=== PATIENT | male | born 1960 | race Caucasian/White ===

== ENCOUNTER 2022-10-15 10:08 | Outpatient (CLI) | payer OTHER, SELFPAY ==
--- NOTE | ~2022-10-15 | US_ITS ---
EXAMINATION: US carotid duplex BI DATE: 10/15/2022 10:35 INDICATION: Abnormal diagnostic heart images TECHNIQUE: Grayscale, color Doppler, and pulsed Doppler images of the cervical carotid arteries were obtained. The degree of vessel stenosis is placed in one of the following categories: normal, <50%, 5 0-69%, >=70% but less than near-occlusion, near-occlusion, or total occlusion. Note that percent sten osis relative to normal distal artery lumen diameter is indirectly measured from velocity measurement s as described by Karthik, et al. Radiology 2003; 229:340-346. Notes: Normal: Peak systolic velocity <125 centimeters/sec and no plaque <50%. Peak systolic velocity <125 ( EDV <40; ICA/CCA PSV ratio <2.0; used these factors only a tandem lesions or low cardiac output or co ntralateral disease) 50-69 %: PSV 125-230 (EDV 40-100; ratio 2-4) >= 70% but less than near occlusion: PSV greater than 230 (EDV > 100; ratio> 4.0) Near Occlusion: PSV that is variable; markedly narrowed lumen Occlusion: Absent flow on color/spectral Doppler and no lumen on raymond scale. COMPARISON: None. FINDINGS: RIGHT: The right common carotid artery (CCA) peak systolic velocity (PSV) is 87 cm/s. The right internal car otid artery (ICA) PSV is 52 cm/s. The right ICA end-diastolic velocity (EDV) is 12 cm/s. The right IC A/CCA PSV ratio is 0.6. The external carotid artery (ECA) PSV is 69 cm/s. There is antegrade flow in the right vertebral artery. LEFT: The left CCA PSV is 64 cm/s. The left ICA PSV is 57 cm/s. The left ICA EDV is 19 cm/s. The left ICA/C CA PSV ratio is 0.9. The ECA PSV is 43 cm/s. There is antegrade flow in the left vertebral artery. IMPRESSION: 1. Less than 50% stenosis in the right internal carotid artery by sonographic criteria. 2. Less than 50% stenosis in the left internal carotid artery by sonographic criteria. Reviewed, dictated and finalized at location A. IMPRESSION: 1. Less than 50% stenosis in the right internal carotid artery by sonographic blaine otrres. 2. Less than 50% stenosis in the left internal carotid artery by sonographic herlinda coto.
== END 2022-10-15 10:09 | disposition home or self-care (01) ==
PROVIDERS: PCP Internal Medicine; Visit Provider Internal Medicine
DX: R93.1 Abnormal findings on diagnostic imaging of heart and coronary circulation (principal); I10 Essential (primary) hypertension; I44.7 Left bundle-branch block, unspecified; E78.5 Hyperlipidemia, unspecified; I65.23 Occlusion and stenosis of bilateral carotid arteries
CPT/HCPCS: 93880

== ENCOUNTER 2023-05-08 07:42 | Outpatient (CLI) | payer OTHER, SELFPAY ==
--- NOTE | ~2023-05-08 | CT_ITS ---
CT Scan of the Chest without Contrast: Clinical Indication: Pulmonary nodule Technique: Contiguous sections were acquired throughout the chest without intravenous contrast. Dose reduction technique was used on this scan by utilizing automated exposure control and iterative recon struction technique. The dose-length product (DLP) was 231.25 mGy-cm. Findings: There is no evidence of any significant mediastinal, hilar or axillary lymphadenopathy.. Calcified le ft hilar lymph nodes are present. Coronary artery calcifications are present. There is no evidence of pleural or pericardial effusion. Calcified left upper lobe granuloma present. No other pulmonary abnormality seen. Images through the upper abdomen reveal no abnormalities. Impression: No suspicious abnormality. Evidence of prior granulomatous disease. Reviewed, dictated and finalized at [facility]. IBILITY COUNSELOR Impression: No suspicious abnormality. Evidence of prior granulomatous disease.
== END 2023-05-08 07:43 | disposition home or self-care (01) ==
PROVIDERS: PCP Internal Medicine; Visit Provider Internal Medicine
DX: R91.1 Solitary pulmonary nodule (principal)
CPT/HCPCS: 71250

== ENCOUNTER 2023-12-26 11:51 | Outpatient (CLI) | payer OTHER, SELFPAY ==
[2023-12-26 12:26] LABS: Hematocrit 46.3 % (42.0-52.0); Hemoglobin 15.9 g/dL (14.0-18.0); Mean Corpuscular HGB Conc 34.3 g/dl (32-36); Mean Corpuscular Hemoglobin 34.3 pg (26-34); Mean Corpuscular Volume 99.8 fl (80-100); Platelet Count Result 179 k/mm3 (150-375); Red Blood Count 4.64 M/mm3 (4.6-6.20); Red Cell Distribution Width 12.9 % (11.5-14.5); White Blood Count 10.7 K/mm3 (4.5-10.0)
[2023-12-26 12:38] LABS: Albumin Level 4.5 g/dL (3.5-5.1); Anion Gap 8 mmol/L (4-12); Blood Urea Nitrogen 15 mg/dL (9-20); Calcium 9.4 mg/dL (8.4-10.2); Carbon Dioxide 26 mmol/L (22-30); Chloride 104 mmol/L (98-107); Estimated Glomerular Filt Rate > 60; Glucose 117 mg/dL (65-110); Potassium 4.1 mmol/L (3.4-5.0); Sodium 138 mmol/L (137-145)
[2023-12-26 12:45] LABS: Prealbumin 25.3 mg/dL (17.6-36.0)
[2023-12-26 13:10] LABS: Iron 86 ug/dL (49-181)
[2023-12-29 12:44] LABS: Vitamin B1 87 nmol/L (8-30)
== END 2023-12-26 11:52 | disposition home or self-care (01) ==
LOC: ANHLAB 11:55
PROVIDERS: PCP Internal Medicine; Visit Provider Surgery Plastic and Reconstructive Surgery
DX: R63.4 Abnormal weight loss (principal)
CPT/HCPCS: 36415; 80048; 82040; 83036; 83540; 84134; 84425; 85027

== ENCOUNTER 2024-01-07 01:30 | Day surgery (SDC) | payer OTHER, SELFPAY ==
[2023-12-30 10:37] VITALS: BMI 30.8
--- NOTE | 2023-12-30 10:44 | PC.NURSE ---
Report to the Outpatient Waiting Room, entrance under the green pavilion located off [facility], at time _0600_ on date _[id number]_. Planned Procedure Time: _0730_.? Time changes happen often and if your time is changed the preop area will call you the afternoon before. - You and your visitor will be asked to self-screen and do not enter if you have any COVID symptoms. Please call surgeon if you need to reschedule. - A mask is optional within the hospital at this time. Patients may have clear liquids (water, carbonated beverages, clear teas, apple juice) until 3 hours prior to surgery with a maximum of 20 ounces. - No food from midnight until time of surgery and no smoking Take only the following medications with a SIP of water on the morning of surgery: __Carvidilol, Escitalopram and Valcyclovir DO NOT STOP ANY OF YOUR OTHER PRESCRIPTION MEDICATIONS PRIOR TO SURGERY EXCEPT THE FOLLOWING Medications to discontinue per physician ___Patient stopped his Manjaro 10 days ago. Please no make-up, nail saudi arabian, hairspray, perfume, deodorant, or body powder the day of surgery.? No jewelry (including any body piercings) or valuables the day of surgery, leave them at home.? Please take a shower or bath the night before, or the morning of, surgery with an antibacterial soap.? Wear comfortable, loose fitting clothing.? - Jewelry must be removed prior to entering the operating room.? Rings and piercings that are not removed may be cut off. - The hospital will not accept responsibility for valuables.? - Please leave all valuables, including medications, at home the day of surgery. If you are going home after surgery, a licensed regional driver must drive you home.? - NO public transportation without another adult if you receive anesthesia. - We recommend that an adult stay with you for 24 hours following discharge. - We also recommend that you do not drive, make important decision, drink alcoholic beverages, or take any drugs that were not prescribed by your health care provider for at least 24 hours after your discharge time. Follow any additional instructions given to you from your surgeon. Telephone instructions given to __Herman__and asked if any additional questions and then verbalized understanding. Patient advised to call surgeon office or pre surgery nurse liaison [phone] if any additional questions.
--- NOTE | 2024-01-06 17:03 | WPDANESEPP ---
Anes - Eval Pre Procedure Procedure: Operation Date: 01/07/24 07:30 Proposed Procedures p Abdominoplasty with Liposuction - Blayne Willard MD Date/Time: 01/06/24 17:03 Pre Op Diagnosis: skin laxity Patient Data Age: 63 Gender: M Height: 1.88 m Weight: 109 kg Allergies Allergy/AdvReac Type Severity Reaction Status Date / Time No Known Allergies Allergy Verified 12/30/23 10:35 Home Medications Medication Instructions Recorded Confirmed Type aspirin 81 mg capsule 81 mg PO DAILY 03/22/22 12/30/23 History allopurinol 100 mg tablet See Rx Instructions .Route 06/17/23 12/30/23 Rx .COMPLEX #90 tabs empagliflozin 12.5 mg-metformin ER See Rx Instructions .Route 06/17/23 12/30/23 Rx 1,000 mg tablet,extended rel 24 hr .COMPLEX #90 tabs (Synjardy XR) escitalopram oxalate 10 mg tablet See Rx Instructions .Route 06/17/23 12/30/23 Rx .COMPLEX #90 tabs sacubitril 97 mg-valsartan 103 mg 1 tablet PO BID 06/25/23 12/30/23 History tablet (Entresto) tirzepatide 15 mg/0.5 mL See Rx Instructions .Route 08/26/23 12/30/23 Rx subcutaneous pen injector .COMPLEX #6 mL (Mounjaro) eplerenone 25 mg tablet (Inspra) 25 mg PO .QOD #45 tabs 11/11/23 12/30/23 Rx atorvastatin 40 mg tablet See Rx Instructions .Route 11/26/23 12/30/23 Rx .COMPLEX #180 tabs ezetimibe 10 mg tablet (Zetia) 10 mg PO DAILY #90 tabs 11/26/23 12/30/23 Rx sildenafil 100 mg tablet See Rx Instructions .Route 11/26/23 12/30/23 Rx .COMPLEX #22 tabs valacyclovir 1 gram tablet See Rx Instructions .Route 11/26/23 12/30/23 Rx .COMPLEX #90 tabs carvedilol 25 mg tablet 25 mg PO Q12H 12/09/23 12/30/23 History Patient hx anesthesia problems: none Family hx anesthesia problems: none Results Review: All pre-operative results and documents have been reviewed as part of the pre-operative evaluation. [facility] Past Medical History Medical History (Updated 01/06/24 @ 17:05 by Chandan Jones Jr., CRNA) Anxiety with depression ASHD (arteriosclerotic heart disease) Benign essential hypertension BMI 32.0-32.9,adult BMI 33.0-33.9,adult BMI 35.0-35.9,adult BPH (benign prostatic hyperplasia) DM type 2 (diabetes mellitus, type 2) Encounter for preventive health examination Encounter for routine adult health examination without abnormal findings Encounter to establish care Erectile dysfunction Follow up Gout Hearing loss Hyperlipidemia LBBB (left bundle branch block) Lung nodule On correction drug therapy Pre-diabetes Skin lesion Testosterone deficiency Type O blood, Rh positive Vision changes Vitamin D deficiency Family History Family History Mother Diabetes mellitus Obesity Sibling Alive and well Father , @ 76 Diabetes mellitus Hypertension Grandparent Diabetes mellitus Sibling No problems noted. Social History Social History Smoking status: Never smoker Second hand tobacco smoke exposure: No Alcohol intake: current Drinks per week: 10 Alcohol use details: social Lack of Transportation: No Lack of Food: Never True Current Housing: I Have Housing Concerned About Future Housing: No Difficulty Paying Gas/Electric Bills: No Difficulty Paying for Meds: No Currently Unemployed: No Education: Master's Degree or Higher Difficulty w/ Childcare or Family Care: No Living arrangements: alone Occupation/Education: occupation Gender identity (if verbalized by the patient): Male Spiritual care concerns: No Exam Day of Procedure 01/06/24 17:03 Patient weight: overweight
[2024-01-07] VITALS (10 sets, daily range): BP systolic 99–146; BP diastolic 61–83; PULSE 70–92; RESP 10–18; TEMP 36.3–36.7; O2SAT 94–99; BMI 31.6
--- NOTE | 2024-01-07 06:34 | P.PNAN_ITS ---
Anes - Eval Final PreProcedure Day of Procedure 01/07/24 06:34 Patient weight: obese Heart: regular rate and rhythm Lungs: clear to auscultation Airway: Mallampati scale class II Neurological: alert and oriented Last oral intake: >/= 8 hours ASA classification: III Emergent: no Anesthetic plan: proceed Anesthesia type and monitoring: general ETT and standard monitoring Results Review: All pre-operative results and documents have been reviewed as part of the pre- operative evaluation. Informed Consent: The patient's anesthetic plan and its attendant risks and benefits were discussed with the patient/family/POA. Questions were solicited and answers provided to the satisfaction of the patient/family/POA.
--- NOTE | 2024-01-07 06:45 | ECG_ITS ---
Test Date: 2024-01-07 06:53:57 Measurements Intervals [place] Rate: 71 P: 59 W[place]: 221 QRS: -55 QRSD: 169 T: 21 QT: 425 QTc: 463 Interpretive Statements SINUS RHYTHM WITH FIRST DEGREE AV BLOCK WITH OCCASIONAL VENTRICULAR PREMATURE COMPLEXES MARKED LEFT AXIS DEVIATION [QRS AXIS < -30] LEFT BUNDLE BRANCH BLOCK No previous ECG available for comparison Electronically Signed On 01-07-2024 12:25:07 CDT by Chastity Greene M.D.
--- NOTE | 2024-01-07 07:01 | WPDHPUPDATE1 ---
History and Physical Update Update Date/Time: 01/07/24 07:01 History and Physical has been reviewed, including an updated exam of the patient. There are NO changes in the patient's condition. Risks, benefits, and alternatives have been discussed and questions answered. Patient agrees to proceed with procedure.
--- NOTE | 2024-01-07 07:01 | W.PM.PROC2 ---
Procedure Note - Detailed Date of Procedure 01/07/24 Pre-op Diagnosis skin laxity Post-op Diagnosis Same Procedure Performed Progressive tension abdominoplasty with suction lipectomy Surgeon Blayne Willard MD Anesthesia General Findings Tissue removed: 2,105.5 Lipoaspirate: 3,500 cc Diastasis: 8 cm Description of Procedure They are here today for the above procedures. Previously and again today the risks, benefits, alternatives were discussed in extensive detail. I wanted them to be very realistic about the risks involved as well as expectations. We discussed aftercare and what to monitor for. I was very upfront about the risks of wound breakdown leading to loss of skin, open wounds, and need for additional procedures with permanent abdominal deformity. We discussed DVT/PE risks and management. Made sure answered all of their questions to their satisfaction today and consent was obtained. They were marked in the preoperative holding area with their verification. The patient was taken to the operating room. Anesthesia was provided by anesthesiology. A Acosta catheter was started. Placed prone on the operating room table with care taken to protect from injury. Prepped and draped in a standard sterile fashion. A surgical time-out was taken. Stab incisions were made and tumescent solution was infiltrated. Once adequate time was allowed for hemostasis a 5mm basket and 3mm multi hole cannula were utilized to complete suction lipectomy based on S.A.F.E. technique in multiple planes and passes. Suction lipectomy continued to result based on pre-operative planning, intra-operative observation, and rolling pinch test which were in full agreement. Patient was then placed supine with care taken to protect from injury. I placed the patient in a flexed position to verify the upper and lower markings would reach. I then placed supine. A thorough abdominal examination was completed. Stab incisions were made and tumescent solution infiltrated. Stab incisions were made and tumescent solution was infiltrated. Once adequate time was allowed for hemostasis a 5mm basket and 3mm multi hole cannula were utilized to complete suction lipectomy based on S.A.F.E. technique in multiple planes and passes. Suction lipectomy continued to result based on pre-operative planning, intra-operative observation, and rolling pinch test which were in full agreement. A 10 blade was used to make the upper incision. I continued dissection down to the level of fascia. Elevated just what was necessary for repair of the diastasis. I then again flexed the bed to verify the upper skin flap would reach the lower markings without tension. Once verified I placed her supine once again and a 10 blade used to make the lower incision. I elevated up to level the umbilicus and left the umbilicus intact on a well-vascularized stalk. The intervening tissue was removed. A 2 mm blunt cannula with 0.5% bupivacaine was injected deep to the fascia bilaterally. I plicated the diastasis recti using 0 PDO Stratafix barbed suture. This was in 2 separate layers using 2 separate sutures as well. After the patient was flexed (below) plicated the fascia with 0 PDO Stratafix in two separate layers. The patient was flexed and starting from superior to inferior began plication using 2-0 Vicryl to obliterate all space in a standard progressive tension fashion. At the umbilicus I marked out the location of the skin and inset this with 3-0 Monocryl and 4-0 Vicryl. I continued the remainder of the plication using 2-0 Vicryl until I reached my lower planned scar line. I trimmed any excess skin of the upper flap making sure this was a tension-free closure. 15 Juan drain was placed. I then approximated using a 3 point suture with 2-0 Vicryl followed by 2-0 PDO Stratafix, 3-0 Stratafix ,running subcuticular 4-0 Monocryl, and tissue glue. Fluffs and an abdominal binder were placed. The
[2024-01-07 07:04] LABS: Urine Cotinine NEGATIVE
[2024-01-07 07:18] LABS: Glucose Point of Care 130 mg/dl (65-105)
[2024-01-07] MEDS: LACTATED RINGERS 1,000 ML 30 ML IV CONT ×2 (07:22→11:40)
[2024-01-07] MEDS: ceFAZolin 2 GM/D5W 50 ML 2 GM/50 ML BAG IVPB (07:25)
[2024-01-07] MEDS: TRANEXAMIC ACID 1,000MG/ISO100 1,000 MG/100 ML BAG 200 MG IVPB (07:25)
[2024-01-07] MEDS: LACTATED RINGERS IRRIG 1,000 ML, LIDOCAINE HCL 1% LOCAL INJ 50 ML, EPINEPHrine HCL INJ ... INFILTRATE (07:55)
[2024-01-07] MEDS: BUPIVACAINE/EPINEPHRINE 0.5% 10 ML VIAL 60 ML INFILTRATE (09:09)
--- NOTE | 2024-01-07 11:17 | SUR.OPER ---
EBL 100 ML
[2024-01-07 12:19] LABS: Glucose Point of Care 184 mg/dl (65-105)
--- NOTE | 2024-01-07 14:17 | ADMGEN ---
This patient, Judson Bowers, was admitted to Medical Room 242-01. Patient oriented to hospital policies and general routines including ID bracelet, bed and alarms, visiting hours, pain management, procedures, bathroom and other care routines, personal items, smoking policy, room service/diet, and visiting hours. Information on how to activate the Rapid Response Team has been discussed. Patient are encouraged to report perceived risks to care and to ask questions if they do not understand what they are told or what they should do.
[2024-01-07] MEDS: carisoprodoL (*CRX) 350 MG TABLET PO ×2 (14:46→21:00)
[2024-01-07] MEDS: KETOROLAC 10 MG TABLET PO ×2 (14:47→20:59)
[2024-01-07] MEDS: carvediloL 25 MG TABLET PO (15:43)
[2024-01-07] MEDS: ENOXAPARIN 40 MG/0.4 ML SYRINGE SUB-Q (17:56)
[2024-01-07] MEDS: DOCUSATE SODIUM 100 MG CAPSULE PO (20:59)
[2024-01-08] MEDS: KETOROLAC 10 MG TABLET PO (02:45)
[2024-01-08] MEDS: carisoprodoL (*CRX) 350 MG TABLET PO (02:45)
[2024-01-08 04:00] VITALS: BP 106/56; PULSE 86; RESP 16; TEMP 36.4; O2SAT 95
--- NOTE | 2024-01-08 06:16 | WPDPN ---
Progress Note: A&P Assessment and Plan (1) Skin laxity: Code(s): L57.4 - Cutis laxa senilis Status: Acute Assessment and Plan: Doing well after progressive tension abdominoplasty with suction lipectomy . Will discharge home. Today we had a lengthy discussion about the care. Activity limitations. What to monitor for. What is an emergency and when to dial 911 / proceed to the ER. This was a lengthy open ended conversation making sure they were well informed. Answered all their questions. They voiced a clear understanding. Will discharge home. Call with any questions or concerns in the meantime. (2) Localized adiposity: Code(s): E65 - Localized adiposity Status: Acute Subjective Date/time seen: 01/08/24 06:16 Interval history: Doing well after progressive tension abdominoplasty with suction lipectomy. Ambulating. Pain controlled. No nausea / vomiting. No fevers / chills. No shortness of breast. No chest pain. No calf tenderness. Review of Systems Review of Systems: All systems reviewed & are unremarkable except as noted in HPI and below Exam Narrative: Alert & Oriented NOD Respiratory unlabored Abdomen is healing well. No signs of infection. No hematoma. No seroma. Good color and capillary refill. No calf tenderness. Negative Ugo's Objective Data Vital Signs Vital Signs: Vital Signs - 24 hr 01/07/24 07:04 01/07/24 11:40 01/07/24 11:55 Temperature 36.5 C 36.3 C L Pulse Rate 70 78 79 Respiratory Rate 14 12 Blood Pressure 146/80 H 99/66 L 119/68 Pulse Oximetry 97 96 98 Oxygen Delivery Room Air Simple Face Mask Simple Face Mask Oxygen Flow Rate 6 8 01/07/24 12:10 01/07/24 12:25 01/07/24 12:40 Temperature Pulse Rate 80 80 92 Respiratory Rate 10 L 12 12 Blood Pressure 113/69 121/70 139/80 Pulse Oximetry 99 99 99 Oxygen Delivery Simple Face Mask Simple Face Mask Room Air Oxygen Flow Rate 8 8 01/07/24 12:55 01/07/24 14:50 01/07/24 15:43 Temperature 36.7 C Pulse Rate 90 78 Respiratory Rate 12 Blood Pressure 138/83 Pulse Oximetry 94 Oxygen Delivery Room Air Room Air Oxygen Flow Rate 01/07/24 19:53 01/07/24 20:00 01/07/24 23:53 Temperature 36.6 C 36.6 C Pulse Rate 88 82 Respiratory Rate 18 18 Blood Pressure 133/67 112/61 Pulse Oximetry 98 97 Oxygen Delivery Room Air Oxygen Flow Rate 01/08/24 04:00 Temperature 36.4 C L Pulse Rate 86 Respiratory Rate 16 Blood Pressure 106/56 L Pulse Oximetry 95 Oxygen Delivery Oxygen Flow Rate Intake/Output Intake/Output: Intake & Output 01/05/24 01/06/24 01/07/24 01/08/24 23:59 23:59 23:59 23:59 Intake Total 1690 300 Output Total 50 Balance 1640 300 Meds/Results Medications: Active Medications Generic Name Dose Route Start Last Admin Trade Name Freq PRN Reason Stop Dose Admin Allopurinol 100 mg 01/07/24 13:20 01/07/24 17:56 Allopurinol 100 Mg Tablet BY MOUTH Not Given DAILY [facility] Atorvastatin Calcium 0 mg 01/07/24 13:20 Atorvastatin 40 Mg Tablet BY MOUTH .COMPLEX [place] Carisoprodol 350 mg 01/07/24 12:00 01/08/24 02:45 Carisoprodol (*Crx) 350 Mg Tablet PO 350 mg Q6HR [facility] Administration Carvedilol 25 mg 01/07/24 13:25 01/07/24 21:02 Carvedilol 25 Mg Tablet PO Not Given Q12HR [facility] Diazepam 5 mg 01/07/24 11:39 Diazepam (*Crx) 5 Mg Tablet PO TID PRN Anxiety Docusate Sodium 100 mg 01/07/24 21:00 01/07/24 20:59 Docusate Sodium 100 Mg Capsule PO 100 mg Q12HR [facility] Administration Ezetimibe 10 mg 01/08/24 09:00 Ezetimibe 10 Mg Tablet PO DAILY [facility] Enoxaparin Sodium 40 mg 01/07/24 18:00 01/07/24 17:56 Enoxaparin 40 Mg/0.4 Ml Syringe SUB-Q 40 mg DAILY [facility] Administration Escitalopram Oxalate 10 mg 01/08/24 09:00 Escitalopram Oxalate 10 Mg Tablet BY MOUTH DAILY [facility] Lactated Ringer's 1,000 mls @ 125 mls/hr 01/07/24 11:40 01/07/24 16:02
--- NOTE | 2024-01-08 06:20 | PM.DS ---
DS: Admitting Diagnosis Discharge Date 01/08/2024 Admitting Diagnosis Skin laxity Localized adiposity DS: Discharge Diagnosis Discharge Diagnosis (1) Skin laxity: Code(s): L57.4 - Cutis laxa senilis Status: Acute (2) Localized adiposity: Code(s): E65 - Localized adiposity Status: Acute DS: Summary Hospital Course Hospital Course: He underwent progressive tension abdominoplasty with suction lipectomy. Postoperatively has done well. Will discharge home. Call with any questions or concerns. Time Spent with Patient Time attestation: Total time spent providing and/or coordinating discharge services: Exam Narrative: Alert & Oriented NOD Respiratory unlabored Abdomen is healing well. No signs of infection. No hematoma. No seroma. Good color and capillary refill. No calf tenderness. Negative Ugo's DS: Data Data Completed and Pending Labs on day of discharge: Labs from last 24 hours 01/07/24 01/07/24 01/07/24 12:17 06:50 06:43 POC Capillary Glucose 184 H 130 H Cotinine Negative Discharge Plan Discharge Patient Disposition: Home, Self-Care Discharge Instructions: POST OPERATIVE DISCHARGE INSTRUCTIONS BLAYNE WILLARD M.D. [facility] [address] [place] [address] [address] for 24 hours after anesthesia and while you are taking pain medication. Take all prescribed medication as directed Diet as tolerated. No lifting or activity that raises blood pressure for 48 hours. Regular walking / ambulation. May shower 24 hours after surgery. Once you shower do not take pain medication before showering as the combination of medication and heat may cause you to feel dizzy or pass out. No pools or tubs for 2 weeks. Slowly stand up straight as tolerated. No straining or lifting more than 20 pounds. If no bowel movement within 24 hours may use laxative. Call with any questions or concerns. Dressing Care: Continue abdominal binder / foam 23 hours per day. If you have any questions or concerns, please call the office . If it is after hours you will be directed to the personal attendant exchange. Shortness of breath, chest pain, or other medical emergency dial 911 / proceed to the Emergency Room. Stand Alone Forms: General Discharge Instructions Follow-up/Referrals: Blayne Willard MD [Physician] - 1 Week Discharge Medications: Continued Entresto 97-103 mg tablet 1 tablet PO BID atorvastatin 40 mg Tablet 40 mg PO Q12H valacyclovir 1 gram Tablet 1,000 mg PO DAILY allopurinol 100 mg Tablet 100 mg PO DAILY sildenafil 100 mg Tablet 100 mg PO DAILY PRN (Reason: Erectile Dysfunction) Rx Instructions: administer 30 minutes to 4 hours before activity escitalopram oxalate 10 mg Tablet 10 mg PO DAILY empagliflozin-metformin 12.5-1,000 mg Tablet, Ir - Er, Biphasic 24hr 1 tablet PO QAM tirzepatide 15 mg/0.5 mL Pen Injector 15 mg SUBCUT WEEKLY Rx Instructions: patient takes on Saturday aspirin 81 mg capsule 81 mg PO DAILY eplerenone [Inspra] 25 mg tablet 25 mg PO .QOD Qty: 45 1RF ezetimibe [Zetia] 10 mg tablet 10 mg PO DAILY Qty: 90 2RF carvedilol 25 mg tablet 25 mg PO Q12H Rx Instructions: must administer with a meal/food
[2024-01-08 07:42] VITALS: RESP 16; O2SAT 95
== END 2024-01-08 07:51 | disposition home or self-care (01) ==
LOC: ANHSURGERY 07:02 → ANH2MED 13:35
PROVIDERS: PCP Internal Medicine; Visit Provider Surgery Plastic and Reconstructive Surgery
PROC: (CPT 15830; principal; 2024-01-07 07:30)
DX: Z41.1 Encounter for cosmetic surgery (principal); L57.4 Cutis laxa senilis; E65 Localized adiposity; I10 Essential (primary) hypertension; E78.5 Hyperlipidemia, unspecified; E11.9 Type 2 diabetes mellitus without complications; E55.9 Vitamin D deficiency, unspecified; N40.0 Benign prostatic hyperplasia without lower urinary tract symptoms; N52.9 Male erectile dysfunction, unspecified; F41.8 Other specified anxiety disorders; I25.10 Atherosclerotic heart disease of native coronary artery without angina pectoris; E78.00 Pure hypercholesterolemia, unspecified; I44.7 Left bundle-branch block, unspecified; E66.9 Obesity, unspecified; Z68.31 Body mass index [BMI] 31.0-31.9, adult; Z79.82 Long term (current) use of aspirin; Z79.85 Long-term (current) use of injectable non-insulin antidiabetic drugs; Z79.899 Other long term (current) drug therapy; Z85.828 Personal history of other malignant neoplasm of skin; Z86.79 Personal history of other diseases of the circulatory system
CPT/HCPCS: 15830; 15847; 15877; 80307; 82948; 93005; A9270; J0171; J0330; J0690; J1100; J1171; J1650; J2003; J2250; J2371; J2405; J2704; J3010; J7120